=== PATIENT | male | born 1985 | race Caucasian/White ===

== ENCOUNTER 2024-10-14 07:55 | Outpatient (CLI) | payer OTHER, MEDICAID, SELFPAY | END 2024-10-14 07:56 | disposition home or self-care (01) | LOC: NFLDREF 10-21 02:26 | PROVIDERS: PCP Family Medicine; Referring Provider Family Medicine; Visit Provider Family Medicine | DX: R79.89 Other specified abnormal findings of blood chemistry (principal); E66.9 Obesity, unspecified; E03.9 Hypothyroidism, unspecified; R53.83 Other fatigue | CPT/HCPCS: 84270; 84402; 84403 ==

== ENCOUNTER 2025-06-12 10:15 | Outpatient (CLI) | payer OTHER, SELFPAY | END 2025-06-12 10:16 | disposition home or self-care (01) | LOC: NFLDREF 06-14 16:03 | PROVIDERS: PCP Family Medicine; Referring Provider Family Medicine; Visit Provider Family Medicine | DX: D64.9 Anemia, unspecified (principal); R79.89 Other specified abnormal findings of blood chemistry; R53.83 Other fatigue; I10 Essential (primary) hypertension; E66.9 Obesity, unspecified | CPT/HCPCS: 80053; 80061; 84270; 84402; 84403; 84443 ==